=== PATIENT | female | born 1975 | race African-American/Black ===

== ENCOUNTER 2022-01-02 21:46 | Emergency (ER) | payer OTHER ==
[~2022-01-02] VITALS: Ht 157.5 cm; Wt 96.6 kg
[2022-01-02 22:43] LABS: ABSOLUTE NEUTROPHILS 4.4 thou/uL (1.4-8.2); BASOPHILS 1.3 % (0.0-2.0); EOSINOPHILS 0.9 % (0.0-3.0); HEMATOCRIT 39.2 % (37.0-47.0); HEMOGLOBIN 12.7 gm/dL (12.0-15.0); LYMPHOCYTES 28.7 % (24.0-44.0); MCH 25.4 pg (26.0-34.0); MCHC 32.4 g/dL (28.0-37.0); MCV 78.4 fL (80.0-100.0); MONOCYTES 7.3 % (1.0-8.0); PLATELET COUNT 360 thou/uL (150-400); POLYS 61.8 % (36.0-66.0); RDW 15.7 % (10.5-14.5); WBC 7.1 thou/uL (4.0-11.0)
[2022-01-02 22:52] LABS: URINE BILIRUBIN NEGATIVE (Negative); URINE BLOOD NEGATIVE (Negative); URINE CLARITY CLEAR; URINE COLOR YELLOW; URINE GLUCOSE-RANDOM* NEGATIVE (Negative); URINE KETONES TRACE (Negative); URINE LEUKOCYTES-REFLEX NEGATIVE (Negative); URINE NITRITE-REFLEX NEGATIVE (Negative); URINE PROTEIN (DIPSTICK) NEGATIVE (Negative); URINE SPECIFIC GRAVITY 1.015 (1.005-1.035); URINE UROBILINOGEN 0.2 E.U./dl (0.2-1.0)
[2022-01-02 22:52] LABS: CALCIUM 9.2 mg/dL (8.5-10.1); CREATININE 0.8 mg/dL (0.6-1.0); POTASSIUM 3.2 mmol/L (3.5-5.1)
[2022-01-02 22:58] LABS: ALBUMIN 3.5 g/dL (3.4-5.0); TOTAL BILIRUBIN 0.3 mg/dL (0.2-1.0); TOTAL PROTEIN 7.7 g/dL (6.4-8.2)
[2022-01-03] MEDS ORDERED: ZOFRAN ODT4 MG PO (00:12)
[2022-01-03 00:51] VITALS: BP 140/79
== END 2022-01-03 00:56 | disposition home or self-care (01) ==
LOC: ER 21:46
PROVIDERS: Nurse Practitioner
DX: R11.2 Nausea with vomiting, unspecified (principal); R10.31 Right lower quadrant pain; I10 Essential (primary) hypertension